=== PATIENT | female | born 1970 | race Caucasian/White ===

== ENCOUNTER 2017-10-23 18:19 | Emergency (ER) | payer OTHER ==
[2017-10-23] MEDS: FLUORESCEIN STRIP LEFT EYE (21:36)
[2017-10-23] MEDS: TETRACAINE 0.5% 4 ML OPH LEFT EYE (21:37)
== END 2017-10-24 | disposition home or self-care (01) ==
LOC: FTE 10-24 → E/R 18:19
DX: S05.02XA Injury of conjunctiva and corneal abrasion without foreign body, left eye, initial encounter (principal); G51.0 Bell's palsy; X58.XXXA Exposure to other specified factors, initial encounter; Y92.9 Unspecified place or not applicable
CPT/HCPCS: 99284